=== PATIENT | female | born 1945 | race African-American/Black ===

== ENCOUNTER 2017-02-01 17:30 | Emergency (ER) | payer MEDICARE, MEDICAID ==
[~2017-02-01] VITALS: Ht 160 cm; Wt 111.0 kg
[~2017-02-01 17:30] MED LIST: AMLO10TA80 PO; BIOTIN PO; CHOL100053 PO; DOCU-138 PO; DONE10TA36 PO; FERR-63 PO; GABA-531 PO; HYDR-3511 PO; KETO5DRO37 OP; LEVO25TA7 PO; PATAODR BOTHEYE; PRAV80TA21 PO; SITA1TAB8 PO; VALS320T2 PO
[2017-02-01 21:00] VITALS: BP 121/77
== END 2017-02-01 21:15 | disposition home or self-care (01) ==
LOC: ER 18:53
DX: S62.637A Displaced fracture of distal phalanx of left little finger, initial encounter for closed fracture (principal); I10 Essential (primary) hypertension; E78.00 Pure hypercholesterolemia, unspecified; E11.9 Type 2 diabetes mellitus without complications; W22.8XXA Striking against or struck by other objects, initial encounter; Y93.89 Activity, other specified; Y92.89 Other specified places as the place of occurrence of the external cause; Y99.8 Other external cause status
CPT/HCPCS: 29125; 73130; 99284

== ENCOUNTER 2017-02-23 18:19 | Emergency (ER) | payer MEDICARE, MEDICAID ==
[~2017-02-23] VITALS: Ht 157.5 cm; Wt 114.0 kg
[2017-02-23 20:00] LABS: BASOPHILS % 0.9 % (0.0-2.0); EOSINOPHILS % 2.6 % (0.0-5.0); HEMATOCRIT. 42.8 % (36.0-48.0); HEMOGLOBIN. 13.2 g/dL (12.0-16.0); LYMPHOCYTES % 29.2 % (20.0-50.0); MEAN CORPUSCULAR HEMOGLOBIN 25.7 pg (28.0-32.0); MEAN CORPUSCULAR VOLUME 83.5 fL (81.0-99.0); MEAN PLATELET VOLUME 9.6 fl (7.4-10.4); MONOCYTES % 6.7 % (2.0-8.0); NEUTROPHILS % 60.6 % (40.0-76.0); PLATELET 176 x1000/uL (130-400); RED BLOOD CELL COUNT 5.12 mill/uL (4.2-5.4); RED CELL DISTRIBUTION WIDTH 14.3 % (11.6-14.6)
[2017-02-23 20:19] LABS: CARBON DIOXIDE 27 mEq/L (21-32); CHLORIDE 109 mEq/L (98-107); TROPONIN I < 0.02 ng/mL (0.00-0.04)
[2017-02-24 01:26] VITALS: BP 130/80
== END 2017-02-24 01:25 | disposition home or self-care (01) ==
LOC: ER 18:19
DX: M25.561 Pain in right knee (principal); M25.562 Pain in left knee; I10 Essential (primary) hypertension; E11.9 Type 2 diabetes mellitus without complications; E78.00 Pure hypercholesterolemia, unspecified; E05.90 Thyrotoxicosis, unspecified without thyrotoxic crisis or storm; Z85.3 Personal history of malignant neoplasm of breast; Z90.11 Acquired absence of right breast and nipple; Z96.651 Presence of right artificial knee joint; W01.0XXA Fall on same level from slipping, tripping and stumbling without subsequent striking against object, initial encounter; Y93.89 Activity, other specified; Y92.018 Other place in single-family (private) house as the place of occurrence of the external cause
CPT/HCPCS: 36415; 70450; 71010; 73552; 73562; 73590; 80053; 82962; 83735; 83880; 84484; 85025; 93005; 99285; J7030

== ENCOUNTER 2018-01-31 09:23 | Emergency (ER) | payer MEDICARE, MEDICAID ==
[~2018-01-31] VITALS: Ht 165.1 cm; Wt 117.0 kg
[2018-01-31 14:16] VITALS: BP 134/81
== END 2018-01-31 14:17 | disposition home or self-care (01) ==
LOC: ER 09:49
DX: M25.561 Pain in right knee (principal); E11.9 Type 2 diabetes mellitus without complications; E78.00 Pure hypercholesterolemia, unspecified; I10 Essential (primary) hypertension; Z90.10 Acquired absence of unspecified breast and nipple; Z96.651 Presence of right artificial knee joint; Z79.899 Other long term (current) drug therapy
CPT/HCPCS: 73560; 99284

== ENCOUNTER 2018-04-16 06:11 | Day surgery (SDC) | payer MEDICARE, MEDICAID ==
[~2018-04-16] VITALS: Ht 157.5 cm; Wt 109.3 kg
[~2018-04-16 06:11] MED LIST changes: +ALBU18HF2 IH; -AMLO10TA80 PO; +AMLO5TAB88 PO; +ASPI-1159 PO; +DENO60DI SQ; +EMPA10TA PO; +EZET10TA26 PO; -FERR-63 PO; +FOLI-43 PO; -HYDR-3511 PO; +LACTATED RINGERS 1,000 ML IV SCH; +LETR2.5T6 PO; +LOSA100T14 PO
[2018-04-16] MEDS ORDERED: LIDOCAINE HCL 1% 20ML VIAL (Pyxis) INJ ONE (07:18)
[2018-04-16] MEDS ORDERED: BUPIVACAINE HCL/PF 0.5% (5MG/ML) 10ML ONE (07:18)
[2018-04-16] MEDS ORDERED: BACITRACIN 50,000 UNITS/VIAL ONE (07:19)
[2018-04-16] MEDS ORDERED: BETAMETHASONE ACET/BETAMET 30 MG/5 ML VIAL IM ONE (07:20)
[2018-04-16] MEDS ORDERED: MIDAZOLAM HCL 2 MG/2 ML VIAL ONE (07:21)
[2018-04-16] MEDS ORDERED: FENTANYL CITRATE/PF 50MCG/ML 2ML VIAL ONE (07:21)
[2018-04-16] MEDS ORDERED: DIPHENHYDRAMINE 50MG/ML VIAL ONE (07:22)
[2018-04-16] MEDS ORDERED: PROPOFOL 200MG/20ML VIAL IV ONE (07:22)
[2018-04-16] MEDS ORDERED: LIDOCAINE HCL/PF 1% 10 MG/ML 5ML VIAL ONE (07:22)
[2018-04-16] MEDS ORDERED: SODIUM CHLORIDE 0.9% 10ML VIAL ONE (07:25)
[2018-04-16] MEDS ORDERED: CEFAZOLIN SODIUM 1000MG/VIAL ONE ×2 (07:25→08:46)
[2018-04-16] MEDS ORDERED: HYDROMORPHONE HCL/PF 2MG/ML CPJ IV PRN (10:15)
== END 2018-04-16 11:30 | disposition home or self-care (01) ==
LOC: OR 06:11
PROVIDERS: ATTEND Podiatrist Foot & Ankle Surgery
DX: M21.612 Bunion of left foot (principal); M20.42 Other hammer toe(s) (acquired), left foot; E66.01 Morbid (severe) obesity due to excess calories; E11.9 Type 2 diabetes mellitus without complications; E03.9 Hypothyroidism, unspecified; I10 Essential (primary) hypertension; Z85.3 Personal history of malignant neoplasm of breast; J45.909 Unspecified asthma, uncomplicated; I51.7 Cardiomegaly; E78.5 Hyperlipidemia, unspecified
CPT/HCPCS: 28270; 28285; 28296; 36569; 71045; 76937; 82962; 88304; 88311; C1713; C1725; J0690; J0702; J1200; J2250; J2704; J3010; J3490

== ENCOUNTER 2019-07-07 13:25 | Inpatient (IN) | payer MEDICARE, MEDICAID ==
[~2019-07-07] VITALS: Ht 160 cm; Wt 108.9 kg
[~2019-07-07 13:25] MED LIST changes: -ASPI-1159 PO; +ASPI-1497 PO; -LACTATED RINGERS 1,000 ML IV SCH; -LETR2.5T6 PO; +LETR2.5T7 PO; -LOSA100T14 PO; +LOSA100T32 PO
[2019-07-07 14:37] LABS: BASOPHILS % 0.4 % (0.0-2.0); CHLORIDE 106 mEq/L (98-107); EOSINOPHILS % 2.9 % (0.0-5.0); HEMATOCRIT. 41.2 % (36.0-48.0); HEMOGLOBIN. 13.2 g/dL (12.0-16.0); LYMPHOCYTES % 24.1 % (20.0-50.0); MEAN CORPUSCULAR HEMOGLOBIN 26.5 pg (28.0-32.0); MEAN CORPUSCULAR VOLUME 82.8 fL (81.0-99.0); MEAN PLATELET VOLUME 9.9 fl (7.4-10.4); MONOCYTES % 7.7 % (2.0-8.0); NEUTROPHILS % 64.9 % (40.0-76.0); PLATELET 170 x1000/uL (130-400); RED BLOOD CELL COUNT 4.97 mill/uL (4.2-5.4); RED CELL DISTRIBUTION WIDTH 14.1 % (11.6-14.6)
[2019-07-07 14:39] LABS: PROTHROMBIN TIME 10.9 sec (9.6-11.0)
[2019-07-07 16:37] LABS: CLARITY URINE CLEAR (CLEAR); COLOR URINE YELLOW (YELLOW); KETONES URINE NEGATIVE (NEGATIVE); LEUKOCYTE ESTERASE URINE NEGATIVE (NEGATIVE); NITRITE URINE NEGATIVE (NEGATIVE); OCCULT BLOOD URINE NEGATIVE (NEGATIVE); PROTEIN URINE NEGATIVE (NEGATIVE); SPECIFIC GRAVITY URINE 1.017 (1.005-1.030)
[2019-07-07] MEDS ORDERED: GUAIFENESIN 200MG/10ML SUGAR FREE UDC PO PRN (19:30)
[2019-07-07] MEDS ORDERED: DOCUSATE SODIUM 100MG CAPSULE PO PRN (19:30)
[2019-07-07] MEDS ORDERED: MAGNESIUM/ALUMINUM HYDROXIDE/SIMETHICONE 30ML UDC PO PRN (19:30)
[2019-07-07] MEDS ORDERED: ONDANSETRON HCL 4MG/2ML INJ IV PRN (19:30)
[2019-07-07] MEDS: CLONIDINE 0.1MG TABLET PO PRN (19:45)
[2019-07-07] MEDS ORDERED: DEXTROSE 50% WATER 50ML SYRINGE IV PRN (21:45)
[2019-07-07] MEDS: INSULIN LISPRO (HIGH DOSE) 100 UNITS/ML SUBCUT SCH (22:00)
[2019-07-07] MEDS: BLOOD SUGAR DIAGNOSTIC STRIP TEST SCH (22:00)
[2019-07-07] MEDS: LORAZEPAM 2MG/ML CPJ IV PRN (22:32)
[2019-07-07 23:30] VITALS: BP 132/69
[2019-07-08] MEDS: ENOXAPARIN 30MG/0.3ML SYR SUBCUT SCH ×3 (00:36→20:56)
[2019-07-08] MEDS: SODIUM CHLORIDE 0.45% 1,000 ML IV SCH ×2 (00:37→13:01)
[2019-07-08 04:00] VITALS: BP 158/82
[2019-07-08] MEDS: BLOOD SUGAR DIAGNOSTIC STRIP TEST SCH ×4 (06:12→20:56)
[2019-07-08] MEDS: INSULIN LISPRO (HIGH DOSE) 100 UNITS/ML SUBCUT SCH ×4 (06:13→20:56)
[2019-07-08 06:23] LABS: CHLORIDE 108 mEq/L (98-107)
[2019-07-08 06:26] LABS: BASOPHILS % 0.5 % (0.0-2.0); EOSINOPHILS % 2.9 % (0.0-5.0); HEMATOCRIT. 41.3 % (36.0-48.0); HEMOGLOBIN. 13.2 g/dL (12.0-16.0); LYMPHOCYTES % 23.3 % (20.0-50.0); MEAN CORPUSCULAR HEMOGLOBIN 26.5 pg (28.0-32.0); MEAN CORPUSCULAR VOLUME 82.9 fL (81.0-99.0); MEAN PLATELET VOLUME 9.9 fl (7.4-10.4); NEUTROPHILS % 65.3 % (40.0-76.0); PLATELET 128 x1000/uL (130-400); RED BLOOD CELL COUNT 4.98 mill/uL (4.2-5.4); RED CELL DISTRIBUTION WIDTH 13.8 % (11.6-14.6)
[2019-07-08 08:00] VITALS: BP 146/71
[2019-07-08] MEDS: THIAMINE HCL 100MG TABLET PO SCH (08:50)
[2019-07-08] MEDS: AMLODIPINE 10MG TABLET PO SCH (08:50)
[2019-07-08] MEDS: MULTIVITAMINS,THER W-MINERALS TABLET PO SCH (08:50)
[2019-07-08] MEDS ORDERED: FOLIC ACID 1MG TABLET PO SCH (09:00)
[2019-07-08 10:10] LABS: T4 FREE 0.92 ng/dL (0.76-1.46)
[2019-07-08] MEDS: LORAZEPAM 2MG/ML CPJ IV PRN (10:41)
[2019-07-08 10:43] LABS: CORTISOL 16.9 ucg/dL
[2019-07-08] MEDS: FOLIC ACID 1MG TABLET PO SCH (10:59)
[2019-07-08] MEDS: DOCUSATE SODIUM 100MG CAPSULE PO SCH (11:00)
[2019-07-08] MEDS: GABAPENTIN 100MG CAPSULE PO SCH (11:00)
[2019-07-08] MEDS: LETROZOLE 2.5MG TABLET PO SCH (11:00)
[2019-07-08] MEDS: LEVOTHYROXINE SODIUM 25MCG TABLET PO SCH (11:00)
[2019-07-08] MEDS: LOSARTAN POTASSIUM 100 MG TABLET PO SCH (11:00)
[2019-07-08 12:00] VITALS: BP 142/79
[2019-07-08 16:00] VITALS: BP 123/74
[2019-07-08 20:00] VITALS: BP 130/73
[2019-07-08] MEDS: ATORVASTATIN CALCIUM 40MG TABLET PO SCH (20:55)
[2019-07-08] MEDS: EZETIMIBE 10MG TABLET PO SCH (20:55)
[2019-07-08] MEDS: DONEPEZIL HCL 10MG TABLET PO SCH (20:55)
[2019-07-08] MEDS: ACETAMINOPHEN 325MG TABLET PO PRN (21:12)
[2019-07-09] VITALS: BP 120/61
[2019-07-09 04:00] VITALS: BP 137/69
[2019-07-09] MEDS: SODIUM CHLORIDE 0.45% 1,000 ML IV SCH (04:57)
[2019-07-09] MEDS: LEVOTHYROXINE SODIUM 25MCG TABLET PO SCH (06:42)
[2019-07-09] MEDS: BLOOD SUGAR DIAGNOSTIC STRIP TEST SCH ×4 (06:43→20:08)
[2019-07-09] MEDS: INSULIN LISPRO (HIGH DOSE) 100 UNITS/ML SUBCUT SCH ×4 (06:43→20:29)
[2019-07-09 08:00] VITALS: BP 170/88
[2019-07-09] MEDS: AMLODIPINE 10MG TABLET PO SCH (09:00)
[2019-07-09] MEDS: GABAPENTIN 100MG CAPSULE PO SCH (09:12)
[2019-07-09] MEDS: ENOXAPARIN 30MG/0.3ML SYR SUBCUT SCH ×2 (09:12→20:28)
[2019-07-09] MEDS: THIAMINE HCL 100MG TABLET PO SCH (09:13)
[2019-07-09] MEDS: DOCUSATE SODIUM 100MG CAPSULE PO SCH (09:13)
[2019-07-09] MEDS: LOSARTAN POTASSIUM 100 MG TABLET PO SCH (09:13)
[2019-07-09] MEDS: MULTIVITAMINS,THER W-MINERALS TABLET PO SCH (09:14)
[2019-07-09] MEDS: LETROZOLE 2.5MG TABLET PO SCH (09:14)
[2019-07-09] MEDS: FOLIC ACID 1MG TABLET PO SCH (09:14)
[2019-07-09] MEDS: LORAZEPAM 2MG/ML CPJ IV PRN ×2 (10:14→15:42)
[2019-07-09 12:00] VITALS: BP 151/74
[2019-07-09 15:50] VITALS: BP 118/66
[2019-07-09 20:00] VITALS: BP 156/97
[2019-07-09] MEDS: DONEPEZIL HCL 10MG TABLET PO SCH (20:28)
[2019-07-09] MEDS: ATORVASTATIN CALCIUM 40MG TABLET PO SCH (20:28)
[2019-07-09] MEDS: EZETIMIBE 10MG TABLET PO SCH (20:28)
[2019-07-10] VITALS: BP 110/70
[2019-07-10] MEDS: LORAZEPAM 2MG/ML CPJ IV PRN (01:07)
[2019-07-10] MEDS: SODIUM CHLORIDE 0.45% 1,000 ML IV SCH (02:27)
[2019-07-10 04:00] VITALS: BP 148/80
[2019-07-10] MEDS: LEVOTHYROXINE SODIUM 25MCG TABLET PO SCH (06:30)
[2019-07-10] MEDS: BLOOD SUGAR DIAGNOSTIC STRIP TEST SCH ×4 (06:45→21:00)
[2019-07-10] MEDS: INSULIN LISPRO (HIGH DOSE) 100 UNITS/ML SUBCUT SCH ×4 (07:15→21:00)
[2019-07-10 08:00] VITALS: BP 155/81
[2019-07-10] MEDS: FOLIC ACID 1MG TABLET PO SCH (09:00)
[2019-07-10] MEDS: GABAPENTIN 100MG CAPSULE PO SCH (09:00)
[2019-07-10] MEDS: THIAMINE HCL 100MG TABLET PO SCH (09:00)
[2019-07-10] MEDS: LOSARTAN POTASSIUM 100 MG TABLET PO SCH (09:00)
[2019-07-10] MEDS: DOCUSATE SODIUM 100MG CAPSULE PO SCH (09:00)
[2019-07-10] MEDS: MULTIVITAMINS,THER W-MINERALS TABLET PO SCH (09:00)
[2019-07-10] MEDS: LETROZOLE 2.5MG TABLET PO SCH (09:00)
[2019-07-10] MEDS: ENOXAPARIN 30MG/0.3ML SYR SUBCUT SCH ×2 (09:00→23:40)
[2019-07-10 10:13] LABS: CHLORIDE 105 mEq/L (98-107)
[2019-07-10] MEDS: AMLODIPINE 10MG TABLET PO SCH (11:56)
[2019-07-10 16:00] VITALS: BP 129/65
[2019-07-10 20:00] VITALS: BP 128/77
[2019-07-10] MEDS: ATORVASTATIN CALCIUM 40MG TABLET PO SCH (23:40)
[2019-07-10] MEDS: EZETIMIBE 10MG TABLET PO SCH (23:40)
[2019-07-11] VITALS: BP 145/79
[2019-07-11 04:00] VITALS: BP 128/77
[2019-07-11] MEDS: SODIUM CHLORIDE 0.45% 1,000 ML IV SCH ×3 (06:45→23:25)
[2019-07-11] MEDS: LEVOTHYROXINE SODIUM 25MCG TABLET PO SCH (07:07)
[2019-07-11] MEDS: BLOOD SUGAR DIAGNOSTIC STRIP TEST SCH ×4 (07:08→21:04)
[2019-07-11] MEDS: INSULIN LISPRO (HIGH DOSE) 100 UNITS/ML SUBCUT SCH ×4 (07:08→21:00)
[2019-07-11 08:00] VITALS: BP 149/75
[2019-07-11] MEDS: DOCUSATE SODIUM 100MG CAPSULE PO SCH (09:05)
[2019-07-11] MEDS: THIAMINE HCL 100MG TABLET PO SCH (09:05)
[2019-07-11] MEDS: AMLODIPINE 10MG TABLET PO SCH (09:05)
[2019-07-11] MEDS: MULTIVITAMINS,THER W-MINERALS TABLET PO SCH (09:05)
[2019-07-11] MEDS: LOSARTAN POTASSIUM 100 MG TABLET PO SCH (09:05)
[2019-07-11] MEDS: FOLIC ACID 1MG TABLET PO SCH (09:05)
[2019-07-11] MEDS: LETROZOLE 2.5MG TABLET PO SCH (09:05)
[2019-07-11] MEDS: ENOXAPARIN 30MG/0.3ML SYR SUBCUT SCH ×2 (09:06→21:12)
[2019-07-11] MEDS: LORAZEPAM 2MG/ML CPJ IV PRN (10:03)
[2019-07-11 12:00] VITALS: BP 132/70
[2019-07-11 16:00] VITALS: BP 153/76
[2019-07-11 20:13] VITALS: BP 132/70
[2019-07-11] MEDS: ATORVASTATIN CALCIUM 40MG TABLET PO SCH (21:10)
[2019-07-11] MEDS: EZETIMIBE 10MG TABLET PO SCH (21:11)
[2019-07-12 00:41] VITALS: BP 138/73
[2019-07-12] MEDS: LORAZEPAM 2MG/ML CPJ IV PRN (01:35)
[2019-07-12 04:17] VITALS: BP_SYST 0; BP_SYST 140; BP_DIAS 0; BP_DIAS 78
[2019-07-12] MEDS: LEVOTHYROXINE SODIUM 25MCG TABLET PO SCH (06:57)
[2019-07-12] MEDS: BLOOD SUGAR DIAGNOSTIC STRIP TEST SCH ×4 (07:02→21:00)
[2019-07-12] MEDS: INSULIN LISPRO (HIGH DOSE) 100 UNITS/ML SUBCUT SCH ×4 (07:02→21:00)
[2019-07-12 08:00] VITALS: BP 132/73
[2019-07-12] MEDS: ENOXAPARIN 30MG/0.3ML SYR SUBCUT SCH ×2 (09:00→22:46)
[2019-07-12] MEDS: MULTIVITAMINS,THER W-MINERALS TABLET PO SCH (10:33)
[2019-07-12] MEDS: FOLIC ACID 1MG TABLET PO SCH (10:33)
[2019-07-12] MEDS: LOSARTAN POTASSIUM 100 MG TABLET PO SCH (10:34)
[2019-07-12] MEDS: AMLODIPINE 10MG TABLET PO SCH (10:34)
[2019-07-12] MEDS: DOCUSATE SODIUM 100MG CAPSULE PO SCH (10:34)
[2019-07-12] MEDS: THIAMINE HCL 100MG TABLET PO SCH (10:34)
[2019-07-12] MEDS: LETROZOLE 2.5MG TABLET PO SCH (10:34)
[2019-07-12 12:00] VITALS: BP 123/65
[2019-07-12 16:00] VITALS: BP 123/67
[2019-07-12] MEDS: SODIUM CHLORIDE 0.45% 1,000 ML IV SCH (16:05)
[2019-07-12 20:00] VITALS: BP 146/70
[2019-07-12] MEDS: EZETIMIBE 10MG TABLET PO SCH (22:46)
[2019-07-12] MEDS: ATORVASTATIN CALCIUM 40MG TABLET PO SCH (22:46)
[2019-07-13] VITALS: BP 131/95
[2019-07-13] MEDS: CLONIDINE 0.1MG TABLET PO PRN (01:30)
[2019-07-13] MEDS ORDERED: LORAZEPAM 2MG/ML CPJ IV PRN ×2 (01:30→21:30)
[2019-07-13 04:00] VITALS: BP 124/70
[2019-07-13] MEDS: BLOOD SUGAR DIAGNOSTIC STRIP TEST SCH ×4 (06:45→21:29)
[2019-07-13] MEDS: LEVOTHYROXINE SODIUM 25MCG TABLET PO SCH (07:07)
[2019-07-13] MEDS: INSULIN LISPRO (HIGH DOSE) 100 UNITS/ML SUBCUT SCH ×4 (07:15→21:38)
[2019-07-13 07:58] VITALS: BP 97/54
[2019-07-13] MEDS: SODIUM CHLORIDE 0.45% 1,000 ML IV SCH (08:25)
[2019-07-13] MEDS: LETROZOLE 2.5MG TABLET PO SCH (08:26)
[2019-07-13] MEDS: FOLIC ACID 1MG TABLET PO SCH (08:26)
[2019-07-13] MEDS: MULTIVITAMINS,THER W-MINERALS TABLET PO SCH (08:26)
[2019-07-13] MEDS: DOCUSATE SODIUM 100MG CAPSULE PO SCH (08:26)
[2019-07-13] MEDS: ACETAMINOPHEN 325MG TABLET PO PRN (08:26)
[2019-07-13] MEDS: THIAMINE HCL 100MG TABLET PO SCH (08:26)
[2019-07-13] MEDS: ENOXAPARIN 30MG/0.3ML SYR SUBCUT SCH ×2 (08:27→21:37)
[2019-07-13] MEDS: LOSARTAN POTASSIUM 100 MG TABLET PO SCH (08:27)
[2019-07-13] MEDS: AMLODIPINE 10MG TABLET PO SCH (08:27)
[2019-07-13 12:00] VITALS: BP 136/55
[2019-07-13 12:26] LABS: CLARITY URINE CLOUDY (CLEAR); COLOR URINE YELLOW (YELLOW); KETONES URINE NEGATIVE (NEGATIVE); LEUKOCYTE ESTERASE URINE 3+ (NEGATIVE); NITRITE URINE POSITIVE (NEGATIVE); OCCULT BLOOD URINE 3+ (NEGATIVE); PROTEIN URINE 2+ (NEGATIVE); SPECIFIC GRAVITY URINE 1.008 (1.005-1.030)
[2019-07-13 15:57] LABS: EOSINOPHILS % 4.7 % (0.0-5.0); HEMATOCRIT. 37.1 % (36.0-48.0); MEAN CORPUSCULAR HEMOGLOBIN 26.4 pg (28.0-32.0); MEAN CORPUSCULAR VOLUME 81.4 fL (81.0-99.0); MEAN PLATELET VOLUME 9.7 fl (7.4-10.4); MONOCYTES % 10.3 % (2.0-8.0); PLATELET 196 x1000/uL (130-400); RED BLOOD CELL COUNT 4.56 mill/uL (4.2-5.4); RED CELL DISTRIBUTION WIDTH 13.6 % (11.6-14.6)
[2019-07-13 16:00] VITALS: BP 103/50
[2019-07-13] MEDS ORDERED: CEFTRIAXONE 1,000 MG in DEXTROSE 5% WATER 50 ML IV SCH (16:00)
[2019-07-13 16:03] LABS: CHLORIDE 107 mEq/L (98-107)
[2019-07-13 20:00] VITALS: BP 135/78
[2019-07-13] MEDS: EZETIMIBE 10MG TABLET PO SCH (21:37)
[2019-07-13] MEDS: ATORVASTATIN CALCIUM 40MG TABLET PO SCH (21:37)
[2019-07-14] VITALS: BP 128/74
[2019-07-14 04:00] VITALS: BP 105/55
[2019-07-14] MEDS: BLOOD SUGAR DIAGNOSTIC STRIP TEST SCH ×2 (06:02→11:45)
[2019-07-14] MEDS: INSULIN LISPRO (HIGH DOSE) 100 UNITS/ML SUBCUT SCH ×2 (06:02→12:15)
[2019-07-14] MEDS: LEVOTHYROXINE SODIUM 25MCG TABLET PO SCH (06:07)
[2019-07-14 07:21] LABS: BASOPHILS % 0.8 % (0.0-2.0); EOSINOPHILS % 5.4 % (0.0-5.0); LYMPHOCYTES % 26.8 % (20.0-50.0); MEAN CORPUSCULAR HEMOGLOBIN 26.3 pg (28.0-32.0); MEAN CORPUSCULAR VOLUME 81.2 fL (81.0-99.0); MEAN PLATELET VOLUME 9.6 fl (7.4-10.4); MONOCYTES % 10.7 % (2.0-8.0); NEUTROPHILS % 56.3 % (40.0-76.0); PLATELET 188 x1000/uL (130-400); RED BLOOD CELL COUNT 4.56 mill/uL (4.2-5.4); RED CELL DISTRIBUTION WIDTH 13.6 % (11.6-14.6)
[2019-07-14 07:39] LABS: CHLORIDE 107 mEq/L (98-107)
[2019-07-14 07:50] LABS: CREATINE KINASE 212 IU/L (26-192)
[2019-07-14 08:00] VITALS: BP 131/72
[2019-07-14] MEDS ORDERED: GABAPENTIN 100MG CAPSULE PO SCH (09:15)
[2019-07-14] MEDS: ENOXAPARIN 30MG/0.3ML SYR SUBCUT SCH (09:22)
[2019-07-14] MEDS: THIAMINE HCL 100MG TABLET PO SCH (09:22)
[2019-07-14] MEDS: MULTIVITAMINS,THER W-MINERALS TABLET PO SCH (09:22)
[2019-07-14] MEDS: LOSARTAN POTASSIUM 100 MG TABLET PO SCH (09:22)
[2019-07-14] MEDS: DOCUSATE SODIUM 100MG CAPSULE PO SCH (09:22)
[2019-07-14] MEDS: FOLIC ACID 1MG TABLET PO SCH (09:22)
[2019-07-14] MEDS: AMLODIPINE 10MG TABLET PO SCH (09:23)
[2019-07-14] MEDS: LETROZOLE 2.5MG TABLET PO SCH (09:33)
[2019-07-14] MEDS ORDERED: LEVO500T2 MT (10:15)
[2019-07-14] MEDS ORDERED: DONEPEZIL HCL 10MG TABLET PO SCH (10:30)
[2019-07-14 12:00] VITALS: BP 101/61
[2019-07-14 14:08] VITALS: BP 111/61
[2019-07-22 04:07] LABS: METANEPHRINE PLASMA 16 pg/mL (0-62); NORMETANEPHRINE PLASMA 95 pg/mL (0-145)
== END 2019-07-14 15:42 | disposition home health service (06) | DRG 71 ==
LOC: ER 13:47 → CANBEDREQ 15:21 → 5WST 16:47 → ENRESERV 22:17
PROVIDERS: ADMIT Hospitalist; ATTEND Hospitalist
PROC: 4A10X4Z Monitoring of Central Nervous Electrical Activity, External Approach (ICD-10-PCS; principal; 2019-07-10)
DX: G93.41 Metabolic encephalopathy (principal); Z68.41 Body mass index [BMI] 40.0-44.9, adult; N39.0 Urinary tract infection, site not specified; E03.9 Hypothyroidism, unspecified; E11.9 Type 2 diabetes mellitus without complications; E66.01 Morbid (severe) obesity due to excess calories; E78.00 Pure hypercholesterolemia, unspecified; D69.6 Thrombocytopenia, unspecified; R05 Cough; E78.5 Hyperlipidemia, unspecified; M48.02 Spinal stenosis, cervical region; G56.00 Carpal tunnel syndrome, unspecified upper limb; Z96.653 Presence of artificial knee joint, bilateral; Z96.651 Presence of right artificial knee joint; G47.33 Obstructive sleep apnea (adult) (pediatric); F03.90 Unspecified dementia, unspecified severity, without behavioral disturbance, psychotic disturbance, mood disturbance, and anxiety; I10 Essential (primary) hypertension; I95.9 Hypotension, unspecified; M15.9 Polyosteoarthritis, unspecified; Z85.3 Personal history of malignant neoplasm of breast; Z90.11 Acquired absence of right breast and nipple; Z79.899 Other long term (current) drug therapy; Z79.82 Long term (current) use of aspirin; Z92.3 Personal history of irradiation; Z92.21 Personal history of antineoplastic chemotherapy; Z87.442 Personal history of urinary calculi; Z87.891 Personal history of nicotine dependence
CPT/HCPCS: 36415; 70551; 71045; 80048; 80053; 81003; 82533; 82550; 82607; 82728; 82962; 83036; 83605; 83835; 83880; 84439; 84443; 84484; 85025; 85379; 86140; 86141; 87077; 87186; 92610; 93005; 93970; 95816; 97162; 99285; J0696; J1650; J1815; J2060; J7060

== ENCOUNTER 2020-07-21 14:30 | Inpatient (IN) | payer MEDICARE, MEDICAID ==
[~2020-07-21] VITALS: Ht 160 cm; Wt 109.8 kg
[~2020-07-21 14:30] MED LIST changes: -GABA-531 PO; +GABA-532 PO; +LEVO500T2 MT
[2020-07-21] MEDS ORDERED: KETOROLAC 30MG/ML VIAL IV STA (15:23)
[2020-07-21] MEDS ORDERED: SODIUM CHLORIDE 0.9% 1,000 ML IV ONE (15:30)
[2020-07-21 16:04] LABS: CHLORIDE 106 mEq/L (98-107)
[2020-07-21 16:06] LABS: BASOPHILS % 1.2 % (0.0-2.0); EOSINOPHILS % 1.6 % (0.0-5.0); HEMATOCRIT. 35.3 % (36.0-48.0); HEMOGLOBIN. 11.5 g/dL (12.0-16.0); MEAN CORPUSCULAR HEMOGLOBIN 26.8 pg (28.0-32.0); MEAN CORPUSCULAR VOLUME 82.1 fL (81.0-99.0); MEAN PLATELET VOLUME 9.9 fl (7.4-10.4); MONOCYTES % 8.9 % (2.0-8.0); NEUTROPHILS % 62.3 % (40.0-76.0); PLATELET 188 x1000/uL (130-400); PROTHROMBIN TIME 10.9 sec (9.6-11.0); RED CELL DISTRIBUTION WIDTH 13.9 % (11.6-14.6)
[2020-07-21 16:08] LABS: ETHANOL BLOOD < 10 mg/dL
[2020-07-21] MEDS ORDERED: BISACODYL 10MG SUPP PR PRN (19:00)
[2020-07-21] MEDS ORDERED: ACETAMINOPHEN 325MG TABLET PO PRN (19:00)
[2020-07-21] MEDS: INSULIN LISPRO (LOW DOSE) 100 UNITS/ML SUBCUT SCH (19:00)
[2020-07-21] MEDS ORDERED: DEXTROSE 50% WATER 50ML SYRINGE IV PRN (19:45)
[2020-07-21] MEDS: DOCUSATE SODIUM 100MG CAPSULE PO SCH (19:57)
[2020-07-21] MEDS: AMLODIPINE 5MG TABLET PO SCH (19:57)
[2020-07-21 20:43] VITALS: BP 124/77
[2020-07-21 20:45] VITALS: BP 124/77
[2020-07-21 21:42] VITALS: BP 116/67
[2020-07-21] MEDS: BLOOD SUGAR DIAGNOSTIC STRIP TEST SCH (21:42)
[2020-07-21] MEDS: ATORVASTATIN CALCIUM 40MG TABLET PO SCH (21:55)
[2020-07-21] MEDS: TRAMADOL 50MG TABLET PO PRN (21:59)
[2020-07-21 23:41] VITALS: BP 141/78
[2020-07-22] VITALS (13 sets, daily range): BP systolic 102–149; BP diastolic 38–108
[2020-07-22] MEDS: IPRATROPIUM/ALBUTEROL 0.5-3(2.5)MG/3ML NEB HHN SCH ×5 (00:55→20:29)
[2020-07-22 03:35] LABS: CLARITY URINE CLEAR (CLEAR); COLOR URINE YELLOW (YELLOW); KETONES URINE TRACE (NEGATIVE); LEUKOCYTE ESTERASE URINE TRACE (NEGATIVE); NITRITE URINE NEGATIVE (NEGATIVE); OCCULT BLOOD URINE NEGATIVE (NEGATIVE); PROTEIN URINE NEGATIVE (NEGATIVE); SPECIFIC GRAVITY URINE 1.025 (1.005-1.030); UROBILINOGEN URINE 0.2 E.U./dL (0.2-1.0)
[2020-07-22 04:05] LABS: *AMPHETAMINES SCREEN URINE NEGATIVE (NEGATIVE); *BARBITURATES SCREEN URINE NEGATIVE (NEGATIVE); *COCAINE SCREEN URINE NEGATIVE (NEGATIVE); CANNABINOID URINE SCREEN NEGATIVE (NEGATIVE); METHADONE URINE SCREEN NEGATIVE (NEGATIVE); OPIATES URINE SCREEN NEGATIVE (NEGATIVE); PHENCYCLIDINE URINE SCREEN NEGATIVE (NEGATIVE)
[2020-07-22 04:06] LABS: *BENZODIAZEPINES SCREEN URINE NEGATIVE (NEGATIVE)
[2020-07-22] MEDS: BLOOD SUGAR DIAGNOSTIC STRIP TEST SCH ×4 (06:21→21:48)
[2020-07-22 06:47] LABS: T4 FREE 0.95 ng/dL (0.76-1.46)
[2020-07-22] MEDS ORDERED: INSULIN LISPRO 100 UNITS/ML SUBCUT SCH (06:50)
[2020-07-22] MEDS: INSULIN LISPRO (LOW DOSE) 100 UNITS/ML SUBCUT SCH ×3 (06:50→16:50)
[2020-07-22] MEDS: LINAGLIPTIN 5MG TABLET PO SCH (08:37)
[2020-07-22] MEDS: DOCUSATE SODIUM 100MG CAPSULE PO SCH (08:37)
[2020-07-22] MEDS: AMLODIPINE 5MG TABLET PO SCH (08:38)
[2020-07-22] MEDS: LOSARTAN POTASSIUM 100 MG TABLET PO SCH (08:38)
[2020-07-22] MEDS: LETROZOLE 2.5MG TABLET PO SCH (09:41)
[2020-07-22] MEDS ORDERED: LIDOCAINE HCL 1% 20ML VIAL (Pyxis) INJ ONE (13:07)
[2020-07-22] MEDS: TRAMADOL 50MG TABLET PO PRN (20:09)
[2020-07-22] MEDS: ATORVASTATIN CALCIUM 40MG TABLET PO SCH (21:54)
[2020-07-23] VITALS (18 sets, daily range): BP systolic 118–155; BP diastolic 61–96
[2020-07-23] MEDS: TRAMADOL 50MG TABLET PO PRN (02:01)
[2020-07-23] MEDS: BLOOD SUGAR DIAGNOSTIC STRIP TEST SCH ×4 (06:28→20:50)
[2020-07-23] MEDS: INSULIN LISPRO (LOW DOSE) 100 UNITS/ML SUBCUT SCH ×3 (06:40→16:15)
[2020-07-23] MEDS: LOSARTAN POTASSIUM 100 MG TABLET PO SCH (08:27)
[2020-07-23] MEDS: LINAGLIPTIN 5MG TABLET PO SCH (08:27)
[2020-07-23] MEDS: DOCUSATE SODIUM 100MG CAPSULE PO SCH ×3 (08:27→16:15)
[2020-07-23] MEDS: AMLODIPINE 5MG TABLET PO SCH (08:28)
[2020-07-23] MEDS: LETROZOLE 2.5MG TABLET PO SCH (08:28)
[2020-07-23 09:16] LABS: FOLIC ACID (FOLATE) SERUM 10.2 ng/mL (>5.38)
[2020-07-23] MEDS: IPRATROPIUM/ALBUTEROL 0.5-3(2.5)MG/3ML NEB HHN SCH ×4 (10:10→20:23)
[2020-07-23] MEDS: ATORVASTATIN CALCIUM 40MG TABLET PO SCH (21:00)
[2020-07-24] VITALS (12 sets, daily range): BP systolic 101–155; BP diastolic 39–112
[2020-07-24] MEDS: BLOOD SUGAR DIAGNOSTIC STRIP TEST SCH ×2 (06:30→11:27)
[2020-07-24] MEDS: INSULIN LISPRO (LOW DOSE) 100 UNITS/ML SUBCUT SCH ×2 (06:32→11:27)
[2020-07-24] MEDS: TRAMADOL 50MG TABLET PO PRN (06:42)
[2020-07-24] MEDS: DOCUSATE SODIUM 100MG CAPSULE PO SCH (09:06)
[2020-07-24] MEDS: AMLODIPINE 5MG TABLET PO SCH (09:07)
[2020-07-24] MEDS: LINAGLIPTIN 5MG TABLET PO SCH (09:07)
[2020-07-24] MEDS: LOSARTAN POTASSIUM 100 MG TABLET PO SCH (09:07)
[2020-07-24] MEDS: LETROZOLE 2.5MG TABLET PO SCH (09:11)
[2020-07-24] MEDS: IPRATROPIUM/ALBUTEROL 0.5-3(2.5)MG/3ML NEB HHN SCH (09:31)
== END 2020-07-24 14:37 | DRG 551 ==
LOC: ER 14:30 → 3WST 16:12 → ENRESERV 18:28
PROVIDERS: ADMIT Internal Medicine Endocrinology, Diabetes & Metabolism; ATTEND Internal Medicine Endocrinology, Diabetes & Metabolism
PROC: B5181ZA Fluoroscopy of Superior Vena Cava using Low Osmolar Contrast, Guidance (ICD-10-PCS; principal; 2020-07-22)
PROC: 02HV33Z Insertion of Infusion Device into Superior Vena Cava, Percutaneous Approach (ICD-10-PCS; 2020-07-22)
PROC: B548ZZA Ultrasonography of Superior Vena Cava, Guidance (ICD-10-PCS; 2020-07-22)
DX: M48.02 Spinal stenosis, cervical region (principal); G92 Toxic encephalopathy; Z68.41 Body mass index [BMI] 40.0-44.9, adult; M48.061 Spinal stenosis, lumbar region without neurogenic claudication; I10 Essential (primary) hypertension; E78.00 Pure hypercholesterolemia, unspecified; Z20.822 Contact with and (suspected) exposure to COVID-19; M15.9 Polyosteoarthritis, unspecified; E66.01 Morbid (severe) obesity due to excess calories; G47.30 Sleep apnea, unspecified; G56.03 Carpal tunnel syndrome, bilateral upper limbs; D64.9 Anemia, unspecified; M47.892 Other spondylosis, cervical region; Z96.653 Presence of artificial knee joint, bilateral; D18.00 Hemangioma unspecified site; E03.9 Hypothyroidism, unspecified; E78.5 Hyperlipidemia, unspecified; D18.09 Hemangioma of other sites; E86.0 Dehydration; G89.4 Chronic pain syndrome; R26.9 Unspecified abnormalities of gait and mobility; M50.222 Other cervical disc displacement at C5-C6 level; E11.42 Type 2 diabetes mellitus with diabetic polyneuropathy; R00.1 Bradycardia, unspecified; R09.89 Other specified symptoms and signs involving the circulatory and respiratory systems; G31.9 Degenerative disease of nervous system, unspecified; R29.6 Repeated falls; Z83.3 Family history of diabetes mellitus; Z85.3 Personal history of malignant neoplasm of breast; Z90.11 Acquired absence of right breast and nipple; Z91.19 Patient's noncompliance with other medical treatment and regimen; Z92.21 Personal history of antineoplastic chemotherapy; Z92.3 Personal history of irradiation; Z95.828 Presence of other vascular implants and grafts; Z98.84 Bariatric surgery status; R53.81 Other malaise
CPT/HCPCS: 36415; 36573; 70544; 70553; 71045; 72141; 72148; 80053; 80305; 80320; 81003; 82140; 82306; 82533; 82607; 82746; 82962; 84439; 84443; 84484; 85025; 87426; 93306; 93880; 94640; 97162; 97530; 99285; C1725; C1893; J1885; J3490; J7030; G0480

== ENCOUNTER 2020-07-24 14:40 | Inpatient (IN) | payer MEDICARE, MEDICAID ==
[~2020-07-24] VITALS: Ht 160 cm; Wt 104.8 kg
[2020-07-24 14:43] VITALS: BP 138/81
[2020-07-24 16:13] VITALS: BP 138/81
[2020-07-24] MEDS ORDERED: DEXTROSE 50% WATER 50ML SYRINGE IV PRN (16:45)
[2020-07-24] MEDS ORDERED: ACETAMINOPHEN 650MG/20.3ML UDC PO PRN (16:45)
[2020-07-24] MEDS ORDERED: BISACODYL 10MG SUPP PR PRN (16:45)
[2020-07-24] MEDS: BLOOD SUGAR DIAGNOSTIC STRIP TEST SCH ×2 (17:00→21:00)
[2020-07-24] MEDS: INSULIN LISPRO 100 UNITS/ML SUBCUT SCH ×2 (17:00→21:00)
[2020-07-24] MEDS: DOCUSATE SODIUM 100MG CAPSULE PO SCH (17:00)
[2020-07-24 20:00] VITALS: BP 99/54
[2020-07-24] MEDS: IPRATROPIUM/ALBUTEROL 0.5-3(2.5)MG/3ML NEB HHN SCH (20:06)
[2020-07-24] MEDS: ATORVASTATIN CALCIUM 40MG TABLET PO SCH (22:40)
[2020-07-24] MEDS: TRAMADOL 50MG TABLET PO PRN (22:48)
[2020-07-25] MEDS: IPRATROPIUM/ALBUTEROL 0.5-3(2.5)MG/3ML NEB HHN SCH ×4 (01:40→20:09)
[2020-07-25] MEDS: BLOOD SUGAR DIAGNOSTIC STRIP TEST SCH ×4 (06:53→20:53)
[2020-07-25 07:22] LABS: BASOPHILS % 0.6 % (0.0-2.0); EOSINOPHILS % 4.7 % (0.0-5.0); HEMATOCRIT. 34.6 % (36.0-48.0); HEMOGLOBIN. 11.1 g/dL (12.0-16.0); LYMPHOCYTES % 24.8 % (20.0-50.0); MEAN CORPUSCULAR HEMOGLOBIN 26.5 pg (28.0-32.0); MEAN CORPUSCULAR VOLUME 82.3 fL (81.0-99.0); NEUTROPHILS % 60.9 % (40.0-76.0); PLATELET 169 x1000/uL (130-400)
[2020-07-25 07:49] VITALS: BP 98/65
[2020-07-25 08:02] LABS: CHLORIDE 108 mEq/L (98-107)
[2020-07-25] MEDS: LINAGLIPTIN 5MG TABLET PO SCH (08:38)
[2020-07-25] MEDS: DOCUSATE SODIUM 100MG CAPSULE PO SCH ×2 (08:39→16:54)
[2020-07-25] MEDS: LOSARTAN POTASSIUM 100 MG TABLET PO SCH (08:45)
[2020-07-25] MEDS: LETROZOLE 2.5MG TABLET PO SCH (08:45)
[2020-07-25] MEDS: AMLODIPINE 5MG TABLET PO SCH (08:46)
[2020-07-25] MEDS: INSULIN LISPRO 100 UNITS/ML SUBCUT SCH ×4 (08:46→20:53)
[2020-07-25 09:39] VITALS: BP 112/58
[2020-07-25 09:56] LABS: CLARITY URINE CLEAR (CLEAR); COLOR URINE YELLOW (YELLOW); KETONES URINE NEGATIVE (NEGATIVE); LEUKOCYTE ESTERASE URINE NEGATIVE (NEGATIVE); NITRITE URINE NEGATIVE (NEGATIVE); OCCULT BLOOD URINE NEGATIVE (NEGATIVE); PH URINE 5.5 (4.5-8.0); PROTEIN URINE NEGATIVE (NEGATIVE); SPECIFIC GRAVITY URINE 1.015 (1.005-1.030); UROBILINOGEN URINE 0.2 E.U./dL (0.2-1.0)
[2020-07-25 14:29] VITALS: BP 117/66
[2020-07-25 14:30] VITALS: BP 110/71
[2020-07-25 20:00] VITALS: BP 155/70
[2020-07-25] MEDS: ATORVASTATIN CALCIUM 40MG TABLET PO SCH (20:53)
[2020-07-26] MEDS: IPRATROPIUM/ALBUTEROL 0.5-3(2.5)MG/3ML NEB HHN SCH ×4 (02:39→20:00)
[2020-07-26] MEDS: BLOOD SUGAR DIAGNOSTIC STRIP TEST SCH ×4 (07:27→21:55)
[2020-07-26 08:30] VITALS: BP_SYST 123; BP_SYST 132; BP_DIAS 69; BP_DIAS 73
[2020-07-26] MEDS: LETROZOLE 2.5MG TABLET PO SCH (08:40)
[2020-07-26] MEDS: DOCUSATE SODIUM 100MG CAPSULE PO SCH ×2 (08:40→17:35)
[2020-07-26] MEDS: LOSARTAN POTASSIUM 100 MG TABLET PO SCH (08:40)
[2020-07-26] MEDS: LINAGLIPTIN 5MG TABLET PO SCH (08:40)
[2020-07-26] MEDS: AMLODIPINE 5MG TABLET PO SCH (08:41)
[2020-07-26] MEDS: TRAMADOL 50MG TABLET PO PRN (08:44)
[2020-07-26] MEDS: INSULIN LISPRO 100 UNITS/ML SUBCUT SCH ×4 (08:45→21:00)
[2020-07-26 18:17] LABS: BASOPHILS % 0.7 % (0.0-2.0); EOSINOPHILS % 4.6 % (0.0-5.0); HEMATOCRIT. 32.2 % (36.0-48.0); HEMOGLOBIN. 10.4 g/dL (12.0-16.0); LYMPHOCYTES % 26.1 % (20.0-50.0); MEAN CORPUSCULAR HEMOGLOBIN 26.4 pg (28.0-32.0); MEAN CORPUSCULAR VOLUME 81.7 fL (81.0-99.0); MONOCYTES % 11.5 % (2.0-8.0); NEUTROPHILS % 57.1 % (40.0-76.0); RED BLOOD CELL COUNT 3.95 mill/uL (4.2-5.4); RED CELL DISTRIBUTION WIDTH 14.1 % (11.6-14.6)
[2020-07-26 18:22] LABS: CHLORIDE 108 mEq/L (98-107)
[2020-07-26 18:39] LABS: MEAN PLATELET VOLUME 10.4 fl (7.4-10.4); PLATELET 141 x1000/uL (130-400)
[2020-07-26 20:00] VITALS: BP 131/70
[2020-07-26] MEDS: ATORVASTATIN CALCIUM 40MG TABLET PO SCH (21:55)
[2020-07-27] MEDS: TRAMADOL 50MG TABLET PO PRN ×2 (00:27→21:50)
[2020-07-27] MEDS: IPRATROPIUM/ALBUTEROL 0.5-3(2.5)MG/3ML NEB HHN SCH ×4 (01:05→20:14)
[2020-07-27] MEDS: BLOOD SUGAR DIAGNOSTIC STRIP TEST SCH ×4 (07:04→21:45)
[2020-07-27 08:24] VITALS: BP 138/76
[2020-07-27] MEDS: LOSARTAN POTASSIUM 100 MG TABLET PO SCH (08:53)
[2020-07-27] MEDS: AMLODIPINE 5MG TABLET PO SCH (08:53)
[2020-07-27] MEDS: LINAGLIPTIN 5MG TABLET PO SCH (08:53)
[2020-07-27] MEDS: DOCUSATE SODIUM 100MG CAPSULE PO SCH ×2 (08:55→17:20)
[2020-07-27] MEDS: LETROZOLE 2.5MG TABLET PO SCH (08:55)
[2020-07-27] MEDS: INSULIN LISPRO 100 UNITS/ML SUBCUT SCH ×4 (08:58→22:42)
[2020-07-27] MEDS: GABAPENTIN 100MG CAPSULE PO SCH ×2 (17:21→21:50)
[2020-07-27 20:00] VITALS: BP 134/77
[2020-07-27] MEDS: ATORVASTATIN CALCIUM 40MG TABLET PO SCH (21:50)
[2020-07-28] MEDS: IPRATROPIUM/ALBUTEROL 0.5-3(2.5)MG/3ML NEB HHN SCH ×4 (02:05→20:46)
[2020-07-28] MEDS: ACETAMINOPHEN 325MG TABLET PO PRN (04:01)
[2020-07-28] MEDS: BLOOD SUGAR DIAGNOSTIC STRIP TEST SCH ×4 (06:17→21:28)
[2020-07-28] MEDS: GABAPENTIN 100MG CAPSULE PO SCH ×3 (06:18→21:33)
[2020-07-28] MEDS ORDERED: GUAIFENESIN-DM 200MG-20MG/10ML UDC PO PRN (07:15)
[2020-07-28 07:52] VITALS: BP 133/74
[2020-07-28] MEDS: INSULIN LISPRO 100 UNITS/ML SUBCUT SCH ×4 (09:00→21:00)
[2020-07-28] MEDS: SULFAMETHOXAZOLE/TRIMETHOPRIM 800/160MG TABLET PO SCH ×2 (09:08→21:33)
[2020-07-28] MEDS: LINAGLIPTIN 5MG TABLET PO SCH (09:08)
[2020-07-28] MEDS: LOSARTAN POTASSIUM 100 MG TABLET PO SCH (09:09)
[2020-07-28] MEDS: DOCUSATE SODIUM 100MG CAPSULE PO SCH ×2 (09:09→17:29)
[2020-07-28] MEDS: AMLODIPINE 5MG TABLET PO SCH (09:09)
[2020-07-28] MEDS: LETROZOLE 2.5MG TABLET PO SCH (09:10)
[2020-07-28] MEDS ORDERED: LACTULOSE 20G/30ML UDC PO PRN (09:30)
[2020-07-28 16:12] LABS: CLARITY URINE CLEAR (CLEAR); COLOR URINE YELLOW (YELLOW); KETONES URINE NEGATIVE (NEGATIVE); LEUKOCYTE ESTERASE URINE 1+ (NEGATIVE); NITRITE URINE NEGATIVE (NEGATIVE); OCCULT BLOOD URINE NEGATIVE (NEGATIVE); PH URINE 6.5 (4.5-8.0); PROTEIN URINE NEGATIVE (NEGATIVE); SPECIFIC GRAVITY URINE 1.015 (1.005-1.030)
[2020-07-28 16:21] LABS: BASOPHILS % 0.6 % (0.0-2.0); EOSINOPHILS % 5.5 % (0.0-5.0); HEMATOCRIT. 33.2 % (36.0-48.0); HEMOGLOBIN. 10.8 g/dL (12.0-16.0); LYMPHOCYTES % 30.6 % (20.0-50.0); MEAN CORPUSCULAR HEMOGLOBIN 26.5 pg (28.0-32.0); MEAN CORPUSCULAR VOLUME 81.6 fL (81.0-99.0); MEAN PLATELET VOLUME 9.5 fl (7.4-10.4); MONOCYTES % 12.5 % (2.0-8.0); NEUTROPHILS % 50.8 % (40.0-76.0); PLATELET 163 x1000/uL (130-400); RED BLOOD CELL COUNT 4.07 mill/uL (4.2-5.4); RED CELL DISTRIBUTION WIDTH 14.2 % (11.6-14.6)
[2020-07-28] MEDS: SENNOSIDES/DOCUSATE SOD 8.6/50MG TABLET PO PRN (17:29)
[2020-07-28 20:00] VITALS: BP 115/61
[2020-07-28] MEDS: MIRTAZAPINE 15MG TABLET PO SCH (21:33)
[2020-07-28] MEDS: ATORVASTATIN CALCIUM 40MG TABLET PO SCH (21:33)
[2020-07-29] MEDS: IPRATROPIUM/ALBUTEROL 0.5-3(2.5)MG/3ML NEB HHN SCH ×4 (02:34→20:06)
[2020-07-29] MEDS: BLOOD SUGAR DIAGNOSTIC STRIP TEST SCH ×4 (06:24→21:26)
[2020-07-29] MEDS: GABAPENTIN 100MG CAPSULE PO SCH ×4 (06:27→21:25)
[2020-07-29 06:59] LABS: BASOPHILS % 1.2 % (0.0-2.0); EOSINOPHILS % 3.4 % (0.0-5.0); HEMATOCRIT. 33.3 % (36.0-48.0); HEMOGLOBIN. 10.8 g/dL (12.0-16.0); LYMPHOCYTES % 23.9 % (20.0-50.0); MEAN CORPUSCULAR HEMOGLOBIN 26.4 pg (28.0-32.0); MEAN CORPUSCULAR VOLUME 81.3 fL (81.0-99.0); MEAN PLATELET VOLUME 9.9 fl (7.4-10.4); MONOCYTES % 10.2 % (2.0-8.0); NEUTROPHILS % 61.3 % (40.0-76.0); PLATELET 178 x1000/uL (130-400); RED CELL DISTRIBUTION WIDTH 14.2 % (11.6-14.6)
[2020-07-29 07:27] VITALS: BP 126/70
[2020-07-29] MEDS: SENNOSIDES/DOCUSATE SOD 8.6/50MG TABLET PO PRN (08:23)
[2020-07-29] MEDS: SULFAMETHOXAZOLE/TRIMETHOPRIM 800/160MG TABLET PO SCH ×2 (08:23→21:25)
[2020-07-29] MEDS: DOCUSATE SODIUM 100MG CAPSULE PO SCH ×2 (08:23→16:08)
[2020-07-29] MEDS: LINAGLIPTIN 5MG TABLET PO SCH (08:23)
[2020-07-29] MEDS: LOSARTAN POTASSIUM 100 MG TABLET PO SCH (08:24)
[2020-07-29] MEDS: AMLODIPINE 5MG TABLET PO SCH (08:24)
[2020-07-29] MEDS: LETROZOLE 2.5MG TABLET PO SCH (08:24)
[2020-07-29] MEDS: INSULIN LISPRO 100 UNITS/ML SUBCUT SCH ×4 (08:25→21:00)
[2020-07-29 08:28] VITALS: BP 125/55
[2020-07-29 08:29] VITALS: BP 125/46
[2020-07-29 20:00] VITALS: BP 124/66
[2020-07-29] MEDS: ATORVASTATIN CALCIUM 40MG TABLET PO SCH (21:25)
[2020-07-29] MEDS: MIRTAZAPINE 15MG TABLET PO SCH (21:26)
[2020-07-30] MEDS: IPRATROPIUM/ALBUTEROL 0.5-3(2.5)MG/3ML NEB HHN SCH ×4 (02:11→20:58)
[2020-07-30] MEDS: GABAPENTIN 100MG CAPSULE PO SCH ×3 (06:22→21:39)
[2020-07-30] MEDS: BLOOD SUGAR DIAGNOSTIC STRIP TEST SCH ×4 (06:30→21:44)
[2020-07-30 08:00] VITALS: BP 108/60
[2020-07-30] MEDS: LOSARTAN POTASSIUM 100 MG TABLET PO SCH (09:00)
[2020-07-30] MEDS: AMLODIPINE 5MG TABLET PO SCH (09:00)
[2020-07-30] MEDS: DOCUSATE SODIUM 100MG CAPSULE PO SCH ×2 (09:00→17:00)
[2020-07-30] MEDS: INSULIN LISPRO 100 UNITS/ML SUBCUT SCH ×3 (09:00→21:00)
[2020-07-30] MEDS: SULFAMETHOXAZOLE/TRIMETHOPRIM 800/160MG TABLET PO SCH ×2 (09:32→21:40)
[2020-07-30] MEDS: LINAGLIPTIN 5MG TABLET PO SCH (09:32)
[2020-07-30] MEDS: LETROZOLE 2.5MG TABLET PO SCH (10:12)
[2020-07-30 20:00] VITALS: BP 111/68
[2020-07-30] MEDS: ATORVASTATIN CALCIUM 40MG TABLET PO SCH (21:39)
[2020-07-30] MEDS: MIRTAZAPINE 15MG TABLET PO SCH (21:40)
[2020-07-31] MEDS: IPRATROPIUM/ALBUTEROL 0.5-3(2.5)MG/3ML NEB HHN SCH ×4 (01:09→21:50)
[2020-07-31] MEDS: GABAPENTIN 100MG CAPSULE PO SCH ×3 (06:17→21:04)
[2020-07-31] MEDS: BLOOD SUGAR DIAGNOSTIC STRIP TEST SCH ×4 (07:00→21:00)
[2020-07-31] MEDS: DOCUSATE SODIUM 100MG CAPSULE PO SCH ×2 (08:41→17:00)
[2020-07-31] MEDS: SULFAMETHOXAZOLE/TRIMETHOPRIM 800/160MG TABLET PO SCH ×2 (08:41→21:00)
[2020-07-31] MEDS: LOSARTAN POTASSIUM 100 MG TABLET PO SCH (08:41)
[2020-07-31] MEDS: LINAGLIPTIN 5MG TABLET PO SCH (08:41)
[2020-07-31] MEDS: AMLODIPINE 5MG TABLET PO SCH (08:47)
[2020-07-31] MEDS: LETROZOLE 2.5MG TABLET PO SCH (08:48)
[2020-07-31] MEDS: INSULIN LISPRO 100 UNITS/ML SUBCUT SCH ×4 (08:51→21:00)
[2020-07-31 09:24] VITALS: BP 124/64
[2020-07-31 19:09] LABS: 25-HYDROXY VITAMIN D3 33 ng/mL (.)
[2020-07-31 20:00] VITALS: BP 123/68
[2020-07-31] MEDS: MIRTAZAPINE 15MG TABLET PO SCH (21:04)
[2020-07-31] MEDS: ATORVASTATIN CALCIUM 40MG TABLET PO SCH (21:05)
[2020-08-01] MEDS: IPRATROPIUM/ALBUTEROL 0.5-3(2.5)MG/3ML NEB HHN SCH ×4 (01:50→21:14)
[2020-08-01] MEDS: BLOOD SUGAR DIAGNOSTIC STRIP TEST SCH ×4 (06:15→20:13)
[2020-08-01] MEDS: GABAPENTIN 100MG CAPSULE PO SCH ×3 (06:17→20:12)
[2020-08-01] MEDS: INSULIN LISPRO 100 UNITS/ML SUBCUT SCH ×4 (06:18→20:13)
[2020-08-01 07:45] VITALS: BP 131/48
[2020-08-01] MEDS: LOSARTAN POTASSIUM 100 MG TABLET PO SCH (08:44)
[2020-08-01] MEDS: AMLODIPINE 5MG TABLET PO SCH (08:44)
[2020-08-01] MEDS: DOCUSATE SODIUM 100MG CAPSULE PO SCH ×2 (08:44→17:00)
[2020-08-01] MEDS: LINAGLIPTIN 5MG TABLET PO SCH (08:44)
[2020-08-01] MEDS: SULFAMETHOXAZOLE/TRIMETHOPRIM 800/160MG TABLET PO SCH ×2 (08:44→20:11)
[2020-08-01] MEDS: LETROZOLE 2.5MG TABLET PO SCH (08:45)
[2020-08-01] MEDS ORDERED: ERGOCALCIFEROL 50000UNITS CAPSULE PO SCH (14:00)
[2020-08-01 20:00] VITALS: BP 114/71
[2020-08-01] MEDS: ATORVASTATIN CALCIUM 40MG TABLET PO SCH (20:12)
[2020-08-01] MEDS: MIRTAZAPINE 15MG TABLET PO SCH (20:12)
[2020-08-01] MEDS: ACETAMINOPHEN 325MG TABLET PO PRN (20:13)
[2020-08-02] MEDS: IPRATROPIUM/ALBUTEROL 0.5-3(2.5)MG/3ML NEB HHN SCH ×4 (02:58→22:17)
[2020-08-02] MEDS: ACETAMINOPHEN 325MG TABLET PO PRN (03:34)
[2020-08-02] MEDS: BLOOD SUGAR DIAGNOSTIC STRIP TEST SCH ×4 (06:24→20:37)
[2020-08-02] MEDS: GABAPENTIN 100MG CAPSULE PO SCH ×3 (06:27→20:36)
[2020-08-02] MEDS: INSULIN LISPRO 100 UNITS/ML SUBCUT SCH ×4 (06:31→20:37)
[2020-08-02 08:00] VITALS: BP 97/62
[2020-08-02] MEDS: AMLODIPINE 5MG TABLET PO SCH (09:00)
[2020-08-02] MEDS: LOSARTAN POTASSIUM 100 MG TABLET PO SCH (09:00)
[2020-08-02] MEDS: SULFAMETHOXAZOLE/TRIMETHOPRIM 800/160MG TABLET PO SCH (09:19)
[2020-08-02] MEDS: LINAGLIPTIN 5MG TABLET PO SCH (09:19)
[2020-08-02] MEDS: LETROZOLE 2.5MG TABLET PO SCH (09:19)
[2020-08-02] MEDS: DOCUSATE SODIUM 100MG CAPSULE PO SCH ×2 (09:20→17:38)
[2020-08-02 20:00] VITALS: BP 125/68
[2020-08-02] MEDS: ATORVASTATIN CALCIUM 40MG TABLET PO SCH (20:36)
[2020-08-02] MEDS: MIRTAZAPINE 15MG TABLET PO SCH (20:36)
[2020-08-03] MEDS: INSULIN LISPRO 100 UNITS/ML SUBCUT SCH ×2 (05:40→12:08)
[2020-08-03] MEDS: BLOOD SUGAR DIAGNOSTIC STRIP TEST SCH ×2 (05:40→12:08)
[2020-08-03] MEDS: GABAPENTIN 100MG CAPSULE PO SCH ×2 (05:42→13:08)
[2020-08-03 07:51] VITALS: BP 136/71
[2020-08-03] MEDS: IPRATROPIUM/ALBUTEROL 0.5-3(2.5)MG/3ML NEB HHN SCH ×2 (07:58→13:49)
[2020-08-03] MEDS: LOSARTAN POTASSIUM 100 MG TABLET PO SCH (08:58)
[2020-08-03] MEDS: DOCUSATE SODIUM 100MG CAPSULE PO SCH (08:58)
[2020-08-03] MEDS: LINAGLIPTIN 5MG TABLET PO SCH (08:58)
[2020-08-03] MEDS: LETROZOLE 2.5MG TABLET PO SCH (08:58)
[2020-08-03] MEDS ORDERED: AMLODIPINE 2.5MG TABLET PO SCH (09:00)
[2020-08-03 13:45] VITALS: BP 136/71
== END 2020-08-03 14:10 | disposition home health service (06) | DRG 92 ==
PROVIDERS: ADMIT Physical Medicine & Rehabilitation Spinal Cord Injury Medicine; ATTEND Internal Medicine Endocrinology, Diabetes & Metabolism
DX: G92 Toxic encephalopathy (principal); N39.0 Urinary tract infection, site not specified; B96.20 Unspecified Escherichia coli [E. coli] as the cause of diseases classified elsewhere; D64.9 Anemia, unspecified; E03.9 Hypothyroidism, unspecified; E55.9 Vitamin D deficiency, unspecified; E66.01 Morbid (severe) obesity due to excess calories; E78.00 Pure hypercholesterolemia, unspecified; E78.5 Hyperlipidemia, unspecified; G56.03 Carpal tunnel syndrome, bilateral upper limbs; G89.4 Chronic pain syndrome; M15.9 Polyosteoarthritis, unspecified; M48.02 Spinal stenosis, cervical region; M48.061 Spinal stenosis, lumbar region without neurogenic claudication; I10 Essential (primary) hypertension; R29.6 Repeated falls; Z85.3 Personal history of malignant neoplasm of breast; Z87.891 Personal history of nicotine dependence; Z90.11 Acquired absence of right breast and nipple; Z92.21 Personal history of antineoplastic chemotherapy; Z92.3 Personal history of irradiation; Z95.828 Presence of other vascular implants and grafts; Z96.653 Presence of artificial knee joint, bilateral; Z83.3 Family history of diabetes mellitus; E11.42 Type 2 diabetes mellitus with diabetic polyneuropathy; F39 Unspecified mood [affective] disorder; G47.30 Sleep apnea, unspecified; N39.41 Urge incontinence
CPT/HCPCS: 36415; 72146; 80048; 80053; 81003; 82306; 82962; 83036; 83735; 84134; 85025; 87077; 87186; 92523; 92610; 93970; 94640; 97110; 97116; 97162; 97166; 97530; 97535; J1815